=== PATIENT | female | born 1985 | race Caucasian/White ===

== ENCOUNTER 2020-05-21 13:49 | Emergency (ER) | payer OTHER ==
[~2020-05-21] VITALS: Ht 165.1 cm; Wt 86.5 kg
[~2020-05-21 13:49] MED LIST: ZOF4T PO; prenatal vit
[2020-05-21 14:33] LABS: BASOPHILS % (AUTO) 0.3 % (0-1); EOSINOPHILS # (AUTO) 0.3 X10'3 (0-0.9); EOSINOPHILS % (AUTO) 2.1 % (0-6); HEMATOCRIT 42.5 % (35.0-45.0); HEMOGLOBIN 14.4 g/dl (12.0-16.0); LYMPHOCYTES # (AUTO) 0.8 X10'3 (1.1-4.8); LYMPHOCYTES % (AUTO) 6.1 % (21-51); MEAN CORPUSCULAR HEMOGLOBIN 29.3 PG (27.0-31.0); MEAN CORPUSCULAR VOLUME 86.2 FL (78-98); MEAN PLATELET VOLUME 8.1 FL (7.4-10.4); MONOCYTES # (AUTO) 0.5 X10'3 (0-0.9); NEUTROPHILS # (AUTO) 11.9 X10'3 (1.8-7.7); NEUTROPHILS % (AUTO) 87.5 % (42-75); PLATELET COUNT 262 X10'3 (140-440); RED BLOOD COUNT 4.93 X10'6 (4.20-5.60); WHITE BLOOD COUNT 13.6 X10'3 (4.5-11.0)
[2020-05-21 14:48] LABS: ALANINE AMINOTRANSFERASE 32 U/L (12-78); ALBUMIN/GLOBULIN RATIO 1.1 (1.1-1.5); ALKALINE PHOSPHATASE 78 IU/L (46-116); ANION GAP 13 (8-16); ASPARTATE AMINO TRANSFERASE 19 U/L (10-37); BILIRUBIN,TOTAL 0.5 MG/DL (0.1-1.0); BLOOD UREA NITROGEN 12 MG/DL (7-18); BUN/CREATININE RATIO 14.8 (6.6-38.0); CALCIUM 8.8 MG/DL (8.5-10.1); CHLORIDE 103 MMOL/L (99-107); CREATININE 0.81 MG/DL (0.40-0.90); GLUCOSE 105 MG/DL (70-104); POTASSIUM 3.3 MMOL/L (3.5-5.1); SODIUM 139 MMOL/L (135-145); TOTAL CARBON DIOXIDE 22.6 MMOL/L (24-32); TOTAL PROTEIN 7.8 G/DL (6.4-8.2); eGFR 80 ML/MIN
[2020-05-21 16:08] VITALS: BP 140/69
[2020-05-21] MEDS ORDERED: ALBU6.7H9 INH (16:34)
== END 2020-05-21 17:34 | disposition home or self-care (01) ==
LOC: ER 13:50
DX: J45.909 Unspecified asthma, uncomplicated (principal); Z20.822 Contact with and (suspected) exposure to COVID-19; Z88.1 Allergy status to other antibiotic agents; Z88.8 Allergy status to other drugs, medicaments and biological substances; Z79.899 Other long term (current) drug therapy
CPT/HCPCS: 36415; 71045; 80053; 85025; 87635; 93005; 99285; C9803

== ENCOUNTER 2024-10-18 11:37 | Emergency (ER) | payer OTHER ==
[~2024-10-18] VITALS: Ht 162.6 cm; Wt 91.3 kg
[~2024-10-18 11:37] MED LIST changes: +ALBU6.7H14 INH
[2024-10-18 11:42] VITALS: TEMP 97.3
--- NOTE | 2024-10-18 11:42 | ELECTROCARDIOGRAPH REPORT ---
[facility] Test Date: 2024-10-18 Test Time: 11:41:33 Pat Name: LAMBERT NICKERSON Department: [facility] Patient ID: [id number] Room: Gender: F Fitting Room Checker: : 1985 Requested By: MAHESH COLBERT Order Number: [id number] Reading MD: Measurements Intervals [place] Rate: 87 P: 61 AR: 135 QRS: 72 QRSD: 102 T: 24 QT: 389 QTc: 468 Interpretive Statements Sinus rhythm Please click the below link to view image of tracing.
[2024-10-18 11:58] VITALS: BP 154/94; PULSE 88; RESP 15; O2SAT 97
[2024-10-18 12:00] LABS: MEAN PLATELET VOLUME 8.2 FL (7.4-10.4); RED CELL DISTRIBUTION WIDTH 13.2 % (11.5-14.5)
--- NOTE | 2024-10-18 12:15 | RADIOLOGY REPORT ---
CHEST RADIOGRAPH Indication: CP Technique: Single frontal view of the chest was obtained COMPARISON: None FINDINGS: Lines and Tubes: None Lungs: Clear Pleura: No effusion. No pneumothorax. Cardiomediastinal contours: Unremarkable Bones: Unremarkable IMPRESSION: No acute disease.
[2024-10-18 12:22] LABS: CREATININE 0.84 MG/DL (0.40-0.90); PRO BRAIN NATRIURETIC PEPTIDE 47 PG/ML (0-125); TOTAL CARBON DIOXIDE 27.3 MMOL/L (24-32); eCRCL 78 ML/MIN; eGFR 75 ML/MIN
--- NOTE | 2024-10-18 13:15 | Physician Documentation ---
History of Present Illness ~ Chief Complaint: Chest Pain Stated Complaint: ABD WITH CP Time Seen by MD: 12:55 Primary Medical Doctor: Raya Coleman HPI 38-year-old female who presents with upper abdominal pain and chest pressure She tells me she has a long history of acid reflux in the past. She has been having on and off symptoms over the past couple of years. Recently she has been having worsening episodes where she has pain in her central upper abdomen that radiates around to her back, and then sometimes causes chest pressure. She had an episode today and was scared and so she came to the ER. Currently she denies any chest pressure or abdominal pain. No history of heart problems. No shortness of breath or pain with deep inspiration. No leg pain or swelling. She is not on a daily antacid medicine Medication Reconciliation Allergies: Coded Allergies: clindamycin (Verified Allergy, Unknown, HIVES, 10/18/24) metoclopramide (Verified Adverse Reaction, Intermediate, 10/18/24) Scheduled Albuterol Sulfate (Proventil Hfa), 2 PUFFS INH Q6H Miscellaneous Medications Ondansetron (Zofran Odt Tab), 4 MG PO, (Reported) [ vit], (Reported) Past Medical History Past Medical History: No Pertinent History Past Surgical History: noncontributory Alcohol Use: Rarely Drug Use: none Lives with: Family Lives In: Home Review of Systems Constitutional: Denies: fever Cardiovascular: Reports: chest pain Gastrointestinal: Reports: abdominal pain; Denies: vomiting, diarrhea Physical Exam Vital Signs: Temperature: 97.3, Source: Oral, Heart Rate: 88, Respiratory Rate: 15, BP: 154/94, Pulse Oximetry: 97, Weight: 91.300 Oxygen Flow Rate: 0 Physical Exam General: This is a pleasant and overall healthy appearing young female, at bedside HEENT: Atraumatic, oropharynx is moist Heart: Regular rate and rhythm, normal-appearing peripheral perfusion Lungs: normal work of breathing, normal oxygen saturation on room air Abdomen: Soft, nondistended, nontender all quadrants including in the epigastric region and right upper quadrant Neuro: Alert and oriented, no focal deficits Psychiatric: Calm and cooperative with exam Progress Results/Orders Results/Orders Orders - MAHESH COLBERT MD Chest,Single View (10/18/24 11:38) Monitor (10/18/24 11:38) Saline Lock (10/18/24 11:38) Oxygen (10/18/24 11:38) Hs Troponin I W Calculations (10/18/24 13:38) Hs Troponin I W Calculations (10/18/24 14:38) Completed Orders - MAHESH COLBERT MD Chest,Single View (10/18/24 11:38) Cbc/Diff (10/18/24 11:38) BMP (10/18/24 11:38) PBNP (10/18/24 11:38) Electrocardiogram (10/18/24 11:38) Hs Troponin I W Calculations (10/18/24 11:38) Vital Signs 10/18/24 10/18/24 11:42 11:58 Temp 97.3 Pulse 79 88 Resp 18 15 B/P (MAP) 161/88 154/94 (114) Pulse Ox 97 97 O2 Flow Rate 0 Laboratory Tests Test 10/18/24 11:45 White Blood Count 11.5 H Red Blood Count 5.43 Hemoglobin 15.5 Hematocrit 45.9 H Mean Corpuscular Volume 84.7 Mean Corpuscular Hemoglobin 28.7 Mean Corpuscular Hemoglobin Concent 33.8 Red Cell Distribution Width 13.2 Platelet Count 344 Mean Platelet Volume 8.2 Neutrophils (%) (Auto) 58.2 Lymphocytes (%) (Auto) 31.5 Monocytes (%) (Auto) 6.1 Eosinophils (%) (Auto) 3.2 Basophils (%) (Auto) 1.0 Neutrophils # (Auto) 6.7 Lymphocytes # (Auto) 3.6 Monocytes # (Auto) 0.7 Eosinophils # (Auto) 0.4 Basophils # (Auto) 0.1 CBC Comment Sodium Level 141 Potassium Level 3.9 Chloride Level 105 Carbon Dioxide Level 27.3 Anion Gap 9 Blood Urea Nitrogen 10 Creatinine 0.84 Estimated GFR/1.73 m2 75 BUN/Creatinine Ratio 11.9 Glucose Level 96 Calcium Level 9.1 Troponin I High Sensitivity 6 Pro-B-Type Natriuretic Peptide 47 Albumin 4.0 Chemistry Comments EKG/XRAY/CT/US/VASC/MRI EKG : Additional Comment I personally interpreted the EKG and this shows: Sinus rhythm, rate 87, QTC 468, no STEMI Chest X-Ray : Additional Comments I personally interpreted the x-ray, and it shows: No focal consolidation, pulmonary edema, or pneumothorax Medical Decision Making Differential Dx:Considerations: Include: cholelithiasis, esophageal reflux/spasm, gastritis, myocardial infarction Additional Information The patient presents with upper abdominal pain and chest pressure. Per her history and exam I suspect that this is gastritis and esophagitis. She has a benign abdominal exam including no tenderness including in the right upper quadrant. Labs were unremarkable including normal LFTs. Cardiac testing reassuring. After shared decision-making conversation, we agreed on the following plan: She will be discharged with a plan to take omeprazole and other antacid treatments, as well as dietary changes. She will follow up with the primary care doctor for further evaluation. If she does develop severe upper abdominal pain that does not resolve, uncontrollable vomiting or other worsening symptoms she will return here for further evaluation including of her gallbladder Departure Time of Disposition: 13:14 Disposition: 01 HOME / SELF CARE / HOMELESS Impression: Primary Impression: Gastritis Additional Impression: Chest pressure Condition: Stable Discharge Instructions: [place] Diet, Gastritis, Adult Referrals: NO PRIMARY CARE PROVIDER (PCP) Education Educated: Patient, Family Educated regarding: diagnosis, treatment, need for follow up Signature Scribe Signature: bita Attestation: MAHESH Nicolas MD Oct 18, 2024 13:15
== END 2024-10-18 13:37 | disposition home or self-care (01) ==
LOC: ER 11:38
DX: K29.70 Gastritis, unspecified, without bleeding (principal); R07.89 Other chest pain; K21.9 Gastro-esophageal reflux disease without esophagitis; Z88.1 Allergy status to other antibiotic agents; Z79.899 Other long term (current) drug therapy
CPT/HCPCS: 36415; 71045; 80048; 83880; 84484; 85025; 93005; 99285

== ENCOUNTER 2024-12-28 23:29 | Emergency (ER) | payer OTHER ==
[~2024-12-28] VITALS: Ht 152.4 cm; Wt 93.8 kg
[2024-12-28 23:37] VITALS: BP 132/67; PULSE 77; RESP 16; TEMP 98.6; O2SAT 97
[2024-12-29 00:07] LABS: MEAN PLATELET VOLUME 8.0 FL (7.4-10.4); RED CELL DISTRIBUTION WIDTH 13.2 % (11.5-14.5)
[2024-12-29 00:21] LABS: CREATININE 0.69 MG/DL (0.40-0.90); TOTAL CARBON DIOXIDE 20.0 MMOL/L (24-32); eCRCL 78 ML/MIN; eGFR > 90 ML/MIN
[2024-12-29 00:38] LABS: LEUKOCYTE ESTERASE ,URINE NEGATIVE (Neg); NITRITES, URINE NEGATIVE (Neg); OCCULT BLOOD,URINE MODERATE (Neg)
[2024-12-29 00:40] LABS: URINE HCG NEGATIVE (NEG)
[2024-12-29 00:55] LABS: UA COLLECTION TYPE CLN CATCH MIDSTREAM
[2024-12-29 00:56] LABS: SQUAMOUS EPITHELIAL CELL,UR FEW /LPF (FEW)
== END 2024-12-29 01:23 | disposition home or self-care (01) ==
LOC: ER 23:30
DX: R10.30 Lower abdominal pain, unspecified (principal); R19.7 Diarrhea, unspecified; E86.0 Dehydration; Z88.1 Allergy status to other antibiotic agents; Z88.8 Allergy status to other drugs, medicaments and biological substances; Z53.21 Procedure and treatment not carried out due to patient leaving prior to being seen by health care provider
CPT/HCPCS: 36415; 80053; 81001; 81025; 83690; 85025; 99281